=== PATIENT | female | born 1965 | race Caucasian/White ===

== ENCOUNTER 2020-01-03 20:20 | Emergency (ER) | payer MEDICAID ==
[~2020-01-03] VITALS: Ht 165.1 cm; Wt 72.0 kg
[~2020-01-03 20:20] MED LIST: CLIN-90 PO
[2020-01-03 21:04] VITALS: BP 164/102
[2020-01-03] MEDS ORDERED: ketorolac tromethamine 15mg/ml inj. IV ONE (21:30)
[2020-01-03] MEDS ORDERED: ketorolac trometh. 30mg/ml inj. IM ONE (21:35)
== END 2020-01-03 21:41 | disposition home or self-care (01) ==
LOC: ER 20:20
DX: M54.5 Low back pain (principal); G89.29 Other chronic pain; F17.200 Nicotine dependence, unspecified, uncomplicated; Z90.710 Acquired absence of both cervix and uterus; Z98.51 Tubal ligation status; Z88.5 Allergy status to narcotic agent; Z79.899 Other long term (current) drug therapy; Z72.89 Other problems related to lifestyle
CPT/HCPCS: 96372; 99283; J1885

== ENCOUNTER 2021-09-13 07:53 | Emergency (ER) | payer MEDICAID ==
[~2021-09-13] VITALS: Ht 165.1 cm; Wt 88.6 kg
[~2021-09-13 07:53] MED LIST changes: -CLIN-90 PO; +CLIN-97 PO
[2021-09-13] MEDS ORDERED: ipratropium/albuterol 3ml nebule NEB ONE (08:25)
[2021-09-13 08:51] LABS: BASOPHILS # (AUTO) 0.3 X10'3 (0-0.2); BASOPHILS % (AUTO) 1.5 % (0-1); EOSINOPHILS % (AUTO) 0 % (0-6); HEMATOCRIT 37.3 % (35.0-45.0); HEMOGLOBIN 12.3 g/dl (12.0-16.0); LYMPHOCYTES # (AUTO) 0.6 X10'3 (1.1-4.8); LYMPHOCYTES % (AUTO) 2.6 % (21-51); MEAN CORPUSCULAR HEMOGLOBIN 32.7 PG (27.0-31.0); MEAN CORPUSCULAR HGB CONC 32.9 g/dL (33.0-36.5); MEAN CORPUSCULAR VOLUME 99.3 FL (78-98); MEAN PLATELET VOLUME 7.6 FL (7.4-10.4); MONOCYTES # (AUTO) 1.1 X10'3 (0-0.9); MONOCYTES % (AUTO) 5.1 % (2-12); NEUTROPHILS # (AUTO) 20.3 X10'3 (1.8-7.7); NEUTROPHILS % (AUTO) 90.8 % (42-75); PLATELET COUNT 484 X10'3 (140-440); RED BLOOD COUNT 3.76 X10'6 (4.20-5.60); RED CELL DISTRIBUTION WIDTH 13.1 % (11.5-14.5); WHITE BLOOD COUNT 22.3 X10'3 (4.5-11.0)
[2021-09-13 08:56] LABS: D-DIMER 0.42 MG/L FEU (0-0.50)
[2021-09-13 09:04] LABS: ALANINE AMINOTRANSFERASE 28 U/L (12-78); ALBUMIN/GLOBULIN RATIO 0.6 (1.1-1.5); ALKALINE PHOSPHATASE 122 IU/L (46-116); ANION GAP 10 (8-16); ASPARTATE AMINO TRANSFERASE 13 U/L (10-37); BILIRUBIN,TOTAL 0.5 MG/DL (0.1-1.0); BLOOD UREA NITROGEN 17 MG/DL (7-18); BUN/CREATININE RATIO 22.1 (6.6-38.0); CALCIUM 8.9 MG/DL (8.5-10.1); CHLORIDE 103 MMOL/L (99-107); CREATININE 0.77 MG/DL (0.40-0.90); GLUCOSE 148 MG/DL (70-104); POTASSIUM 4.1 MMOL/L (3.5-5.1); SODIUM 138 MMOL/L (135-145); TOTAL CARBON DIOXIDE 25.1 MMOL/L (24-32); TOTAL PROTEIN 7.9 G/DL (6.4-8.2); eGFR 78 ML/MIN
[2021-09-13] MEDS ORDERED: HYDR-3965 PO (09:32)
[2021-09-13 09:53] VITALS: BP 158/100
[2021-09-13 10:41] LABS: ANISOCYTOSIS FEW; PLATELET ESTIMATE INCREASED; TOTAL CELLS COUNTED 100
[2021-09-13 10:42] LABS: TOXIC GRANULATION 1+; TOXIC VACUOLATION 1+
== END 2021-09-13 10:00 | disposition home or self-care (01) ==
LOC: ER 07:54
DX: S22.32XA Fracture of one rib, left side, initial encounter for closed fracture (principal); G89.29 Other chronic pain; Z90.710 Acquired absence of both cervix and uterus; Z98.51 Tubal ligation status; Z98.890 Other specified postprocedural states; Z72.89 Other problems related to lifestyle; Z88.5 Allergy status to narcotic agent; Z79.2 Long term (current) use of antibiotics; X58.XXXA Exposure to other specified factors, initial encounter; Y93.89 Activity, other specified; Y92.89 Other specified places as the place of occurrence of the external cause; Y99.8 Other external cause status
CPT/HCPCS: 20552; 36415; 71045; 80053; 85007; 85025; 85379; 94640; 94760; 99284